=== PATIENT | female | born 1950 | race Caucasian/White ===

== ENCOUNTER → 2017-07-08 15:15 | Outpatient (CLI) | payer OTHER | END | disposition home or self-care (01) | LOC: D.MAMMO 15:15 | DX: Z12.31 Encounter for screening mammogram for malignant neoplasm of breast (principal) ==

== ENCOUNTER 2019-01-05 05:35 | Day surgery (SDC) | payer OTHER ==
[2019-01-02 12:40] LABS: HEMATOCRIT 38.5 % (36.0-48.0); HEMOGLOBIN 12.4 g/dL (12-16); MCH 29.7 pg (26.0-34.0); MCHC 32.2 g/dL (31.0-37.0); MCV 92.3 fL (80.0-100.0); MEAN PLATELET VOLUME 9.5 fL (7.4-10.4); RBC 4.17 10x6/uL (4.00-5.40); RDW 13.8 % (11.5-14.5)
[~2019-01-05 05:35] MED LIST: EFFEXOR XR75 MG PO; LEVOTHYROXINE100 MCG PO; ZOCOR20 MG PO
[2019-01-05 06:10] VITALS: BP 132/74; BMI 33.9
[2019-01-05] MEDS ORDERED: HYDROCODON-ACE1 EA10 PO (08:44)
--- NOTE | 2019-01-06 14:15 | OP ---
PATIENT NAME: CONNER MCFARLANE MEDICAL RECORD: [id number] :54 LOCATION:[facility] ADMISSION DATE: SURGEON: JUAN JUAREZ MD DATE OF OPERATION: 01/05/2019 PREOPERATIVE DIAGNOSIS: Impingement syndrome of the left shoulder. POSTOPERATIVE DIAGNOSIS: Impingement syndrome of the left shoulder. PROCEDURES: 1. Arthroscopic distal clavicle excision done through separate incision -- 1 cm. 2. Arthroscopic subacromial decompression with acromioplasty and bursectomy. SURGEON: Juan Juarez MD ANESTHESIA: General. INTRAOPERATIVE COMPLICATIONS: None. SUMMARY OF PATHOLOGIC FINDINGS: Consistent with the preoperative MRI, the patient had partial thickness tearing of the superficial aspect of the rotator cuff; however, less than 25%. Furthermore, the patient had a downward sloping acromion with excoriation of the coracoacromial ligament as well as a grade IV chondromalacia of the acromioclavicular joint. OPERATIVE SUMMARY IN DETAIL: After obtaining the appropriate preoperative orthopedic surgery consent as well as anesthetic consultation, evaluation and clearance, the patient was brought to the operating room and placed on the operating table in supine position. After general laryngeal mask airway was administered, the patient was placed in the right lateral decubitus position. All pressure points were well padded to include down leg peroneal pad as well as axillary roll. The patient was held firmly to the operating table using the vacuum pack suction system. Left upper extremity and shoulder were then prepped and draped in routine sterile fashion. The arm was held in the Arthrex traction boom in 30 degrees of forward flexion, 30 degrees of abduction, and 10 pounds of traction laterally. Arthroscopy was established in the glenohumeral joint from posterior portal. Diagnostic arthroscopy showed known thickness rotator cuff tearing, very minimal amount of bicipital tendinitis all were present and some posterior chondromalacia of the humeral head. Attention was turned to the subacromial space, accessory anterior and lateral portal were created through which the [place] tissue ablation system was utilized to denude the undersurface of the acromion of all soft tissue elements and release the coracoacromial ligament. A 5-0 barrel bur was used to perform acromioplasty at the level of acromioclavicular joint done through a separate anterior arthroscopic portal. Under direct arthroscopic visualization, distal clavicle was excised with a 5.0 barrel bur. Lastly, all residual subacromial bursa was taken down the superficial tearing of the rotator cuff was noted; however, not thick enough for repair. Having completed this, arthroscopy portals were closed in routine interrupted fashion using 4-0 Prolene. Sterile dressings were applied. The patient was awakened and taken to recovery room in stable condition. All final needle and sponge counts were correct. TRANSINT:[id number] Voice Confirmation ID: [id number] DOCUMENT ID: [id number] OPERATIVE REPORT [id number] CONNER MCFARLANE MD, JUAN PITTS at 1415 CC: [id number] DICTATION DATE: 01/05/19 0847 MORTGAGE PROCESSOR: 01/05/19 1500 [facility] 01/05/19 [id number] [place] [address]
== END 2019-01-05 10:40 | disposition home or self-care (01) ==
LOC: D.OPS 05:35
PROVIDERS: Anesthesiology
DX: M75.42 Impingement syndrome of left shoulder (principal); M75.112 Incomplete rotator cuff tear or rupture of left shoulder, not specified as traumatic; M94.212 Chondromalacia, left shoulder; Z01.812 Encounter for preprocedural laboratory examination